=== PATIENT | female | born 1950 | race Caucasian/White ===

== ENCOUNTER 2017-01-20 06:31 | Inpatient (IN) | payer MEDICARE ==
[~2017-01-20] VITALS: Ht 170.2 cm; Wt 78.7 kg
[2017-01-20 07:05] LABS: HEMOGLOBIN 12.2 gm/dl (12.3-15.3); RED BLOOD COUNT 4.09 M/UL (4.00-5.10); WHITE BLOOD COUNT 14.5 K/UL (4.5-11.0)
[2017-01-20 07:17] LABS: BUN/CREATININE RATIO 18 (0-10)
[2017-01-20] MEDS ORDERED: LEVAQUIN500 MG PO (10:37)
[2017-01-20] MEDS ORDERED: HYDROCODON-ACE1 EAC6 PO (10:38)
[2017-01-20] MEDS ORDERED: ZANAFLEX4 M1 PO (10:39)
[2017-01-20] MEDS ORDERED: NEURONTIN 400400 MG PO (10:40)
[2017-01-20] MEDS ORDERED: ZESTORETIC 20-1 EACH PO (10:41)
[2017-01-20] MEDS ORDERED: LOPRESSOR 25 MG25 MG PO (10:43)
[2017-01-20] MEDS ORDERED: RELAFEN 750 MG750 MG PO (10:44)
[2017-01-20] MEDS ORDERED: VENLAFAXINE HCL75 M2 PO (10:49)
[2017-01-20] MEDS ORDERED: PREMARIN VAG CR30 GM VG (10:57)
[2017-01-20] MEDS ORDERED: CRESTOR10 MG PO (10:58)
[2017-01-20] MEDS ORDERED: ELAVIL 25 MG TA25 MG PO (10:59)
[2017-01-20] MEDS ORDERED: PHENERGAN 25 MG25 M1 PO (11:00)
[2017-01-20] MEDS ORDERED: DILTIAZEM ER300 MG PO (11:03)
[2017-01-20] MEDS ORDERED: ALBUTEROL0.63 MG/3 INH (11:06)
[2017-01-20] MEDS ORDERED: SYMBICORT 80-41 INHA INH (11:08)
[2017-01-21 04:37] LABS: HEMOGLOBIN 11.5 gm/dl (12.3-15.3); RED BLOOD COUNT 3.9 M/UL (4.00-5.10); WHITE BLOOD COUNT 13.3 K/UL (4.5-11.0)
[2017-01-21 05:10] LABS: BUN/CREATININE RATIO 19 (0-10)
[2017-01-22 04:47] LABS: BUN/CREATININE RATIO 21 (0-10)
[2017-01-23 04:51] LABS: RED BLOOD COUNT 4.04 M/UL (4.00-5.10)
[2017-01-23 05:13] LABS: BUN/CREATININE RATIO 19 (0-10)
[2017-01-24 05:37] LABS: BUN/CREATININE RATIO 24 (0-10)
[2017-01-25 04:32] LABS: HEMOGLOBIN 10.8 gm/dl (12.3-15.3); RED BLOOD COUNT 3.73 M/UL (4.00-5.10); WHITE BLOOD COUNT 8.6 K/UL (4.5-11.0)
[2017-01-25 05:14] LABS: BUN/CREATININE RATIO 24 (0-10)
[2017-01-26] MEDS ORDERED: ASPIRIN CHEWABL81 MG PO (12:00)
[2017-01-26] MEDS ORDERED: BETAPACE80 MG PO (12:00)
[2017-01-26] MEDS ORDERED: TAPAZOLE5 MG PO (12:01)
[2017-01-26] MEDS ORDERED: IMDUR ER TAB 3030 MG PO (12:01)
[2017-01-26] MEDS ORDERED: INDERAL TAB 4040 MG PO (12:01)
[2017-03-24] MEDS ORDERED: CLARITIN 10MG T10 MG PO (07:40)
[2017-03-24] MEDS ORDERED: MECLIZINE HCL25 MG PO (07:43)
== END 2017-01-26 13:30 | disposition home or self-care (01) | DRG 291 ==
LOC: ER1 06:31 → ZEROF 08:44 → PROG CARE 08:44 → M/S 01-25 10:40
PROVIDERS: Emergency Medicine; Family Medicine; Internal Medicine; Internal Medicine Cardiovascular Disease; ADMIT Hospitalist
DX: I11.0 Hypertensive heart disease with heart failure (principal); J96.21 Acute and chronic respiratory failure with hypoxia; I47.1 Supraventricular tachycardia; E87.1 Hypo-osmolality and hyponatremia; I50.23 Acute on chronic systolic (congestive) heart failure; E87.6 Hypokalemia; J44.9 Chronic obstructive pulmonary disease, unspecified; E05.90 Thyrotoxicosis, unspecified without thyrotoxic crisis or storm; I42.9 Cardiomyopathy, unspecified; I27.2 Other secondary pulmonary hypertension; E78.5 Hyperlipidemia, unspecified; R07.9 Chest pain, unspecified; R11.2 Nausea with vomiting, unspecified; R94.39 Abnormal result of other cardiovascular function study; G89.29 Other chronic pain; M54.9 Dorsalgia, unspecified; F32.9 Major depressive disorder, single episode, unspecified; F17.200 Nicotine dependence, unspecified, uncomplicated; Z99.81 Dependence on supplemental oxygen; Z79.890 Hormone replacement therapy; Z79.891 Long term (current) use of opiate analgesic; Z79.51 Long term (current) use of inhaled steroids; Z79.899 Other long term (current) drug therapy; Z88.8 Allergy status to other drugs, medicaments and biological substances; Z98.890 Other specified postprocedural states; Z83.3 Family history of diabetes mellitus; Z82.49 Family history of ischemic heart disease and other diseases of the circulatory system
CPT/HCPCS: ECHO; 36415; 36600; 71010; 71020; 78452; 80048; 80053; 81001; 82550; 82553; 82803; 83036; 83605; 83690; 83735; 83874; 83880; 84132; 84439; 84443; 84480; 84484; 85025; 85027; 85610; 85730; 87040; 93005; 93017; 93306; 94003; 94640; 94664; 96365; 96367; 96375; 96376; 99291; A9502; J0696; J1160; J1650; J1940; J2060; J2270; J2785; J7050

== ENCOUNTER → 2017-03-19 | Outpatient (CLI) | payer MEDICARE ==
[~2017-03-19] MED LIST: ALBUTEROL0.63 MG/3 INH; ASPIRIN CHEWABL81 MG PO; BETAPACE80 MG PO; CLARITIN 10MG T10 MG PO; CRESTOR10 MG PO; DILTIAZEM ER300 MG PO; ELAVIL 25 MG TA25 MG PO; HYDROCODON-ACE1 EAC6 PO; IMDUR ER TAB 3030 MG PO; INDERAL TAB 4040 MG PO; LEVAQUIN500 MG PO; LOPRESSOR 25 MG25 MG PO; MECLIZINE HCL25 MG PO; NEURONTIN 400400 MG PO; PHENERGAN 25 MG25 M1 PO; PREMARIN VAG CR30 GM VG; RELAFEN 750 MG750 MG PO; SYMBICORT 80-41 INHA INH; TAPAZOLE5 MG PO; VENLAFAXINE HCL75 M2 PO; ZANAFLEX4 M1 PO; ZESTORETIC 20-1 EACH PO
[2017-03-19 12:36] LABS: HEMOGLOBIN 13.9 gm/dl (12.3-15.3); RED BLOOD COUNT 4.74 M/UL (4.00-5.10); WHITE BLOOD COUNT 11.3 K/UL (4.5-11.0)
[2017-03-19 12:56] LABS: BUN/CREATININE RATIO 11 (0-10)
== END ==
LOC: LAB 11:52
PROVIDERS: Internal Medicine Cardiovascular Disease
DX: I07.1 Rheumatic tricuspid insufficiency (principal); I34.0 Nonrheumatic mitral (valve) insufficiency; R06.02 Shortness of breath; I27.2 Other secondary pulmonary hypertension
CPT/HCPCS: 36415; 36600; 80048; 82803; 85025

== ENCOUNTER → 2017-03-24 | Outpatient (CLI) | payer MEDICARE ==
[~2017-03-24] VITALS: Ht 170.2 cm; Wt 73.9 kg
== END | disposition home or self-care (01) ==
LOC: CATH 06:44
DX: I25.118 Atherosclerotic heart disease of native coronary artery with other forms of angina pectoris (principal); I08.1 Rheumatic disorders of both mitral and tricuspid valves; I27.2 Other secondary pulmonary hypertension; I11.0 Hypertensive heart disease with heart failure; I50.22 Chronic systolic (congestive) heart failure; R94.39 Abnormal result of other cardiovascular function study; R06.02 Shortness of breath; I42.9 Cardiomyopathy, unspecified; E05.90 Thyrotoxicosis, unspecified without thyrotoxic crisis or storm; I47.1 Supraventricular tachycardia; M96.1 Postlaminectomy syndrome, not elsewhere classified; J44.9 Chronic obstructive pulmonary disease, unspecified; E11.9 Type 2 diabetes mellitus without complications; E78.00 Pure hypercholesterolemia, unspecified; R09.02 Hypoxemia; Z88.8 Allergy status to other drugs, medicaments and biological substances; Z79.82 Long term (current) use of aspirin; Z79.891 Long term (current) use of opiate analgesic; Z79.899 Other long term (current) drug therapy; F41.9 Anxiety disorder, unspecified; F32.9 Major depressive disorder, single episode, unspecified; F17.210 Nicotine dependence, cigarettes, uncomplicated
CPT/HCPCS: 82962; C1751; C1769; C1894; J0153; J1644; J2250; J7030; Q0163; Q9963

== ENCOUNTER → 2017-04-28 | Outpatient (CLI) | payer MEDICARE, OTHER | LOC: LAB 13:19 | DX: E05.90 Thyrotoxicosis, unspecified without thyrotoxic crisis or storm (principal) | CPT/HCPCS: 36415; 84439; 84443; 84445; 84481 ==

== ENCOUNTER → 2020-12-18 | Outpatient (CLI) | payer MEDICARE, OTHER ==
[~2020-12-18] MED LIST changes: +ALDACTONE 25MG25 MG PO; +ALPRAZOLAM0.5 MG PO; +AMIODARONE HCL200 MG PO; +AMLODIPINE BESY10 MG PO; +AMLODIPINE-BEN1 EAC4 PO; +BENADRYL 25MG C25 MG PO; +BENAZEPRIL HCL20 MG PO; +BETAPACE 80MG T80 MG PO; +BUMETANIDE1 MG PO; +CARDIZEM CD180 MG PO; +CARTIA XT180 MG PO; +COZAAR 25MG TAB25 MG PO; +DIGOXIN125 MCG PO; +DILTIAZEM ER180 M1 PO; +EFFEXOR XR150 MG PO; +FLEXERIL 10 MG10 MG PO; +FLUTICASONE PRO16 GM; +FUROSEMIDE40 MG PO; +GABAPENTIN400 MG PO; +HYDRALAZINE HC100 MG PO; +HYDRALAZINE HCL25 MG PO; +HYDRALAZINE HCL50 MG PO; +HYDROCHLOROTHIA25 MG PO; +IPRAT-ALBUT 0.5-3 ML INH; +IPRAT-ALBUT 0.5-3 ML NEB; +LASIX TAB 20 MG20 MG PO; +LEVAQUIN750 MG PO; +LISINOPRIL10 MG PO; +LOPRESSOR 50 MG50 MG PO; +MEDROL DOSEPAK 24 MG PO; +MEDROL4 MG PO; +METOPROLOL SUCC25 MG PO; +MYLANTA PO; +NORVASC 5 MG TAB5 MG PO; +NORVASC10 MG PO; +OMNICEF 300 MG300 MG PO; +POTASSIUM CHLO20 ME2 PO; +PREDNISONE20 MG PO; +PRINIVIL20 MG PO; +PROTONIX40 MG PO; +SENNA PLUS 8.61 EACH PO; +SOTALOL80 MG PO; +SYMBICORT 160-1 INHA INH; +SYMBICORT 16010.2 GM INH; +SYNTHROID75 MCG PO; +TIKOSYN PO; +TIZANIDINE HCL4 MG PO; +VALIUM 5 MG TAB5 MG PO; +VENLAFAXINE HC150 MG PO; +VENTOLIN HFA 66.7 GM INH; +XARELTO 10 MG T10 MG PO; +XARELTO 15 MG T15 MG PO; +XARELTO20 MG PO; +ZANAFLEX4 MG PO; +[UNRECOGNIZED DRUG - OTHER] PO
== END ==
LOC: KOH-I 13:30
DX: Z12.2 Encounter for screening for malignant neoplasm of respiratory organs (principal); F17.210 Nicotine dependence, cigarettes, uncomplicated; R59.0 Localized enlarged lymph nodes; R91.8 Other nonspecific abnormal finding of lung field; I25.10 Atherosclerotic heart disease of native coronary artery without angina pectoris
CPT/HCPCS: 71271

== ENCOUNTER → 2021-05-30 | Outpatient (CLI) | payer MEDICARE, OTHER | LOC: EXRD 10:39 | DX: R94.39 Abnormal result of other cardiovascular function study (principal); T43.615A Adverse effect of caffeine, initial encounter; I48.92 Unspecified atrial flutter; I10 Essential (primary) hypertension; I42.9 Cardiomyopathy, unspecified; M96.1 Postlaminectomy syndrome, not elsewhere classified; Z72.0 Tobacco use | CPT/HCPCS: 71046 ==

== ENCOUNTER → 2021-08-12 | Outpatient (CLI) | payer MEDICARE, OTHER | LOC: HEART 5 07-28 10:00 | DX: I50.22 Chronic systolic (congestive) heart failure (principal); I08.3 Combined rheumatic disorders of mitral, aortic and tricuspid valves; I27.20 Pulmonary hypertension, unspecified | CPT/HCPCS: 93306 ==

== ENCOUNTER → 2021-08-28 | Outpatient (CLI) | payer MEDICARE, OTHER | LOC: HEART 5 08:59 | DX: R06.00 Dyspnea, unspecified (principal); Z79.899 Other long term (current) drug therapy; R94.2 Abnormal results of pulmonary function studies | CPT/HCPCS: 94060; 94729 ==

== ENCOUNTER 2022-07-18 16:21 | Inpatient (IN) | payer MEDICARE, OTHER ==
[~2022-07-18] VITALS: Ht 170.2 cm; Wt 74.0 kg
[~2022-07-18 16:21] MED LIST changes: -GABAPENTIN400 MG PO; +GABAPENTIN800 MG PO; +HYDROCODON-ACE1 EAC2 PO; -HYDROCODON-ACE1 EAC6 PO
[2022-07-18 18:15] LABS: HEMOGLOBIN 9.5 gm/dl (12.3-15.3); RED BLOOD COUNT 3.63 M/UL (4.00-5.10); WHITE BLOOD COUNT 12.7 K/UL (4.5-11.0)
[2022-07-19] MEDS ORDERED: AMIODARONE HCL200 MG PO (10:57)
[2022-07-19] MEDS ORDERED: XARELTO15 MG PO (10:59)
[2022-07-19] MEDS ORDERED: ADVAIR 500-501 EACH INH (10:59)
[2022-07-19] MEDS ORDERED: MORPHINE PAIN PUMP (11:00)
[2022-07-20 06:52] LABS: HEMOGLOBIN 9.2 gm/dl (12.3-15.3); RED BLOOD COUNT 3.5 M/UL (4.00-5.10)
--- NOTE | 2022-07-20 11:17 | NUR ---
provided education r/t in and out cath to patient and she stated well i thought its because you are giving me fluids i "pi" a lot and i dont want to get up so much. i thougt if you do me in and out cath it will help me not using the bathroom too much. after education given patient refused to have in and out cath and verb understanding .
[2022-07-22 03:21] LABS: HEMOGLOBIN 10.3 gm/dl (12.3-15.3); RED BLOOD COUNT 3.87 M/UL (4.00-5.10); WHITE BLOOD COUNT 7.5 K/UL (4.5-11.0)
[2022-07-22] MEDS ORDERED: CEFUROXIME500 MG PO (12:18)
[2022-07-22] MEDS ORDERED: BUMETANIDE1 MG PO (12:34)
== END 2022-07-22 14:23 | disposition home or self-care (01) | DRG 193 ==
LOC: ER1 16:21 → CDU 07-19 00:11 → M/S 07-19 00:11
PROVIDERS: Internal Medicine; Physician Assistant Medical; ADMIT Student in an Organized Health Care Education/Training Program
PROC: B24BZZZ Ultrasonography of Heart with Aorta (ICD-10-PCS; principal; 2022-07-19)
DX: J18.9 Pneumonia, unspecified organism (principal); I50.33 Acute on chronic diastolic (congestive) heart failure; J96.21 Acute and chronic respiratory failure with hypoxia; J44.1 Chronic obstructive pulmonary disease with (acute) exacerbation; Z20.822 Contact with and (suspected) exposure to COVID-19; J44.0 Chronic obstructive pulmonary disease with (acute) lower respiratory infection; N17.9 Acute kidney failure, unspecified; I42.9 Cardiomyopathy, unspecified; I13.0 Hypertensive heart and chronic kidney disease with heart failure and stage 1 through stage 4 chronic kidney disease, or unspecified chronic kidney disease; F11.20 Opioid dependence, uncomplicated; E87.2 Acidosis; I25.10 Atherosclerotic heart disease of native coronary artery without angina pectoris; G89.29 Other chronic pain; M54.9 Dorsalgia, unspecified; I08.3 Combined rheumatic disorders of mitral, aortic and tricuspid valves; Z96.698 Presence of other orthopedic joint implants; I45.81 Long QT syndrome; I48.0 Paroxysmal atrial fibrillation; E78.00 Pure hypercholesterolemia, unspecified; F17.210 Nicotine dependence, cigarettes, uncomplicated; R53.81 Other malaise; N18.30 Chronic kidney disease, stage 3 unspecified; Z99.81 Dependence on supplemental oxygen; Z79.01 Long term (current) use of anticoagulants; Z98.891 History of uterine scar from previous surgery; Z98.890 Other specified postprocedural states; Z82.49 Family history of ischemic heart disease and other diseases of the circulatory system; Z83.3 Family history of diabetes mellitus; Z88.2 Allergy status to sulfonamides; Z88.8 Allergy status to other drugs, medicaments and biological substances; Z71.6 Tobacco abuse counseling
CPT/HCPCS: ECHO; 36415; 36600; 71045; 80048; 80053; 81001; 82550; 82553; 82803; 83605; 83735; 83880; 84439; 84443; 84484; 85025; 87040; 93005; 93306; 94640; 94664; 94760; 96374; 96375; 96376; 97110; 97116; 97116-GP-CQ; 97161; 99285; J0456; J0696; J1940; J2270; J2405; J2920; J7050; U0002